=== PATIENT | male | born 1960 | race Caucasian/White ===

== ENCOUNTER → 2017-05-24 | Outpatient (CLI) | payer BC ==
--- NOTE | 2017-05-25 10:47 | XR ---
EXAM TYPE: LUMBAR SPINE X RAY SERIES COMPARISON: NONE HISTORY: Low back pain TECHNIQUE: 4 views are submitted. FINDINGS: Alignment is anatomic. The pedicles are intact. The transverse processes are intact. There is no s pondylolysis or spondylolisthesis. Severe degenerative disc disease L5-S1 and L4-L5 with severe arth ropathy of the facet joints. Moderate degenerative disc disease at remaining levels IMPRESSION: 1. Multilevel moderate to severe degenerative disc disease with most marked findings at L4-5. Bilater al foraminal encroachment suspected correlate with MRI..
== END | disposition home or self-care (01) ==
LOC: RADXRMAIN 16:40
PROVIDERS: ATTEND Physician Assistant
DX: M51.16 Intervertebral disc disorders with radiculopathy, lumbar region (principal)
CPT/HCPCS: 72100

== ENCOUNTER → 2017-05-29 | Outpatient (CLI) | payer BC ==
--- NOTE | 2017-05-29 15:17 | MR ---
EXAMINATION TYPE: MR lumbar spine wo con DATE OF EXAM: 05/29/2017 COMPARISON: NONE HISTORY: Rt buttock pain, radiating down leg; no trauma/pain TECHNIQUE: T1 and T2 axial and sagittal images of the lumbar spine are submitted. FINDINGS: There is no abnormal signal seen within the visualized spinal cord or paraspinal soft tissu es. At L1-2 there is no disc herniation or canal stenosis. No foraminal encroachment. At L2-3 there is no disc herniation or canal stenosis. No foraminal encroachment. Hypertrophic change of the facets noted. At L3-4 there is no disc herniation or canal stenosis. No foraminal encroachment. Hypertrophic change of the facets noted. Very minimal right paracentral disc bulging. At L4-5 there is severe degenerative disc disease with discogenic marrow changes. Circumferential dis c bulging with facet arthropathy and ligamentum flavum result in mild to moderate canal stenosis and moderate bilateral foraminal encroachment. At L5-S1 there is disc desiccation with central disc protrusion but no canal stenosis. Protrusion sli ghtly greater paracentrally the right with suggestion of encroachment upon the right nerve root. Face t arthropathy seen. Neural foramina remain patent. Vascular disc compatible severe degenerative disc disease. IMPRESSION: 1. Severe degenerative disc disease L4-5 with hypertrophic changes and disc bulging resulting in mild to moderate canal stenosis and bilateral moderate foraminal encroachment. 2. Central disc protrusion or small herniation L5-S1 slightly greater paracentrally to the right and may encroach upon the right nerve root. Correlate for right-sided radiculopathy at this level.
== END | disposition home or self-care (01) ==
LOC: RADMRIMAIN 13:51
PROVIDERS: ATTEND Family Medicine
DX: M48.061 Spinal stenosis, lumbar region without neurogenic claudication (principal); M51.27 Other intervertebral disc displacement, lumbosacral region; M51.36 Other intervertebral disc degeneration, lumbar region; M53.86 Other specified dorsopathies, lumbar region
CPT/HCPCS: 72148

== ENCOUNTER → 2017-06-22 | Outpatient (CLI) | payer BC ==
[2017-06-22 15:29] LABS: Basophils # (A) 0.1 k/uL (0-0.2); Basophils % (A) 1 %; Eosinophils # (A) 0.1 k/uL (0-0.7); Eosinophils % (A) 1 %; HCT 45.9 % (39.0-53.0); HGB 16.3 gm/dL (13.0-17.5); Lymphocytes # (A) 1.3 k/uL (1.0-4.8); Lymphocytes % (A) 14 %; MCH 31.6 pg (25.0-35.0); MCHC 35.6 g/dL (31.0-37.0); MCV 88.7 fL (80.0-100.0); Mean Platelet Volume 6.5; Monocytes # (A) 0.3 k/uL (0-1.0); Monocytes % (A) 3 %; Neutrophils # (A) 7.9 k/uL (1.3-7.7); Neutrophils % (A) 82 %; Platelet Count 327 k/uL (150-450); RBC 5.17 m/uL (4.30-5.90); RDW 12.3 % (11.5-15.5); WBC 9.6 k/uL (3.8-10.6)
[2017-06-22 20:35] LABS: Erythrocyte Sedimentation Rate 2 mm/hr (0-15)
== END | disposition home or self-care (01) ==
LOC: LABWHC1 14:57
PROVIDERS: ATTEND Orthopaedic Surgery Orthopaedic Surgery of the Spine
DX: M51.17 Intervertebral disc disorders with radiculopathy, lumbosacral region (principal); M47.817 Spondylosis without myelopathy or radiculopathy, lumbosacral region; M51.26 Other intervertebral disc displacement, lumbar region; M54.5 Low back pain
CPT/HCPCS: 36415; 85025; 85652; 86140

== ENCOUNTER → 2017-07-13 | Outpatient (CLI) | payer BC ==
[2017-07-13 16:50] LABS: Anion Gap 14 mmol/L; Blood Urea Nitrogen 18 mg/dL (9-20); Calcium 9.8 mg/dL (8.4-10.2); Carbon Dioxide 25 mmol/L (22-30); Chloride 104 mmol/L (98-107); Glucose 93 mg/dL (74-99); Potassium 4.6 mmol/L (3.5-5.1); Sodium 143 mmol/L (137-145)
[2017-07-13 16:51] LABS: Basophils # (A) 0.1 k/uL (0-0.2); Basophils % (A) 1 %; Eosinophils # (A) 0.2 k/uL (0-0.7); Eosinophils % (A) 3 %; HGB 14.9 gm/dL (13.0-17.5); Lymphocytes # (A) 2.8 k/uL (1.0-4.8); Lymphocytes % (A) 32 %; MCH 31.8 pg (25.0-35.0); MCHC 35.3 g/dL (31.0-37.0); MCV 89.9 fL (80.0-100.0); Mean Platelet Volume 6.6; Monocytes # (A) 0.5 k/uL (0-1.0); Monocytes % (A) 6 %; Neutrophils # (A) 4.8 k/uL (1.3-7.7); Neutrophils % (A) 56 %; Platelet Count 334 k/uL (150-450); RBC 4.68 m/uL (4.30-5.90); RDW 12.4 % (11.5-15.5); WBC 8.5 k/uL (3.8-10.6)
[2017-07-13 16:56] LABS: Appearance,Urine Clear (Clear); Bilirubin,Urine Negative (Negative); Blood,Urine Negative (Negative); Color,Urine Yellow; Glucose,Urine (UA) Negative (Negative); Ketones,Urine Negative (Negative); Leukocyte Esterase,Urine Negative (Negative); Nitrite,Urine Negative (Negative); Protein,Urine Negative (Negative); Urobilinogen,Urine <2.0 mg/dL (<2.0)
[2017-07-13 16:58] LABS: Partial Thromboplastin Time 22.4 sec (22.0-30.0); Prothrombin Time 9.9 sec (9.0-12.0)
--- NOTE | 2017-07-14 08:19 | XR ---
EXAMINATION TYPE: XR chest 2V DATE OF EXAM: 07/13/2017 COMPARISON: NONE TECHNIQUE: PA and lateral views submitted. HISTORY: Preop FINDINGS: The lungs are clear and there is no pneumothorax, pleural effusion, or focal pneumonia. Hypertrophi c change of the right AC joint noted. Failure. Hypertrophic changes of the spine IMPRESSION: 1. No acute process.
== END | disposition home or self-care (01) ==
LOC: LABPAT 15:45
PROVIDERS: ATTEND Orthopaedic Surgery Orthopaedic Surgery of the Spine
DX: Z01.818 Encounter for other preprocedural examination (principal); Z01.812 Encounter for preprocedural laboratory examination; M54.5 Low back pain
CPT/HCPCS: 36415; 71046; 80048; 81003; 85025; 85610; 85730; 87070

== ENCOUNTER 2017-07-21 07:53 | Inpatient (IN) | payer BC ==
[2017-07-14 14:54] VITALS: BMI 42.1
[~2017-07-21 07:53] MED LIST: BACITRACIN 50,000 UNIT, POLYMYXIN B 500,000 UNIT in SODIUM CHLORIDE 0.9% IRRIGATIO 1,00... IRRIGATION ONE; DEXAMETHASONE SOD PHOSPHATE 10 MG/ML 1 ML VIAL IV ONE; LIDOCAINE 1% 20 ML VIAL (10MG/ML) FOR IV START INTRADERMA PRN; MIDAZOLAM 2 MG/2 ML VIAL IV PRN; ONDANSETRON ODT 4 MG TAB PO ONE; SCOPOLAMINE 1.5MG/72HR PATCH TRANSDERM ONE
[2017-07-21] MEDS: LACTATED RINGERS 1,000 ML IV SCH ×2 (08:19→20:10)
[2017-07-21] MEDS ORDERED: ONDANSETRON 4 MG/2 ML VIAL IVP ONE (08:21)
[2017-07-21] MEDS ORDERED: BENZOCAINE/MENTHOL LOZENG 1 EACH LOZENGE MUCOUS MEM PRN (09:47)
[2017-07-21] MEDS ORDERED: MAGNESIUM HYDROXIDE 2,400 MG/10 ML CUP PO PRN (09:47)
[2017-07-21] MEDS ORDERED: MORPHINE SULFATE 4 MG/ML SYRINGE IVP PRN (09:47)
[2017-07-21] MEDS ORDERED: ONDANSETRON 4 MG/2 ML VIAL IVP PRN (09:48)
[2017-07-21] MEDS ORDERED: HYDROcodone/APAP 5-325MG 1 EACH TAB PO PRN (09:48)
--- NOTE | 2017-07-21 09:55 | P.OP ---
Date of Procedure: 07/21/17 Preoperative Diagnosis: Herniated nucleus pulposis C56 C6 7 Cervical stenosis C5 6 C6 7 Upper extremity radiculopathy Degenerative disc disease Postoperative Diagnosis: Same Anesthesia: GETA Pathology: none sent Condition: stable Disposition: PACU Description of Procedure: BRIEF OPERATIVE NOTE Preoperative Diagnosis: Herniated nucleus pulposis C5 6 C6 7, cervical stenosis C5 6 C6 7, degenerative disc disease, upper extremity radiculopathy Postoperative Diagnosis: Same Procedure: Anterior cervical decompression with discectomy and fusion C5 6 C6 7 Placement of interbody graft C5 6 C6 7 Application of anterior cervical plate C5 6 7 Surgeon: Dr. Baron Clam Sorter: Josué BIANCHI who is present throughout the entire the case persistence during positioning, dissection, exposure, visualization, and all crucial elements of the case as well as closure. Anesthesia: General anesthesia per Dr. Dr. Stanley Estimated blood loss: Approximately 30 mL Complications: None apparent Components implanted: K2M [place] anterior cervical plate system with screws and [place] interbody allograft bone graft with 1 mL of DBX bone putty to supplemental the bone graft Disposition: To recovery room in good stable condition. OPERATIVE INDICATIONS The patient has had long-standing issues in their neck and upper extremities. He was found have disc herniations at C5 6 and C6 7 as well as cervical stenosis with disc degeneration. These findings correlated well with his neck and upper extremity symptoms. The patient has been through conservative treatment. Despite conservative treatment he was not having any prolonged benefit and was having worsening of his symptoms particularly at his arm. We discussed various treatment options including surgery, and the patient wishes to proceed with surgery We discussed the risk, patient's alternatives and benefits of surgery including but not limited to, risk of bleeding risk of infection, risk of need for further surgery, risk of decreased, loss of motion, muscle function, malunion nonunion, hardware failure, nerve damage, paralysis, heart attack, and . OPERATIVE SUMMARY After discussing all the risks, patient alternatives and benefits at length, the patient elected to proceed with surgical intervention, signed informed consent, and presented for their procedure. The patient was seen and examined in the preoperative holding area and the surgical site was marked. The patient was given antibiotics and brought to the operating room. The patient was positioned on the operating room table in a supine position being careful to pad any bony prominences and pressure points. The patient was sedated and intubated by anesthesia in standard fashion. Once the airway and C- spine were stabilized the patient's arms were padded and tucked at her side, with her shoulders gently taped. The head was placed in a donut pad with the neck in good neutral alignment and position. We were careful to maintain the patient's cervical spine and good neutral alignment and position throughout. The patient was prepped and draped in a normal standard fashion. An appropriate timeout and keystone protocol performed. We were able to proceed with the surgery. The local wound area was infiltrated with local anesthetic. An incision was made transversely approximately 2-1/2 cm over the appropriate levels at C6. Dissection was taken down subcutaneously to the level of the platysma which was split in line with its fibers. Dissection was taken with a carotid approach, with the trachea and esophagus medial and the carotid sheath laterally. We dissected down to the anterior surface of the vertebral bodies of C5 6 and 7. Intraoperative x-ray was taken which showed a marker at the appropriate level of C6 7. With the appropriate level positively confirmed, we were able to proceed with discectomy at the appropriate levels, starting at C5 6 and then moving to C6 7. All of the operative levels were exposed appropriately. I was able to remove the anterior osteophytes with a rongeur. The patient had all their twitches back, and there was no evidence of recurrent laryngeal issue. The wound was copiously irrigated and suctioned dry as had been done periodically throughout the case. At the appropriate level/levels, starting at C5 6 and then moving to C6 7, I established an annulotomy with an 11 blade scalpel. A discectomy was performed with a combination of pituitary rongeurs, curettes, a high-speed bur, and Kerrison rongeurs. The posterior longitudinal ligament was taken down as were any posterior osteophytes. As able to remove any extruded disc herniation as there was evidence of cervical stenosis due to disc herniation. This gave good central and bilateral foraminal decompression. There is no evidence of any dural tear or leak. The endplates were prepared with a high-speed bur. With the endplates in good parallel position, I was able to size for the appropriate size interbody graft. The wound was irrigated and suctioned dry the graft was prepared and malleted into position. It had good alignment and position with the anterior surface flush with the anterior surface of the vertebral bodies. This was done similarly the appropriate levels first at C5 6 and then at C6 7. With the grafts intact, I was able to measure and contour and appropriate sized plate. The plate was positioned at the midline over the appropriate levels. Screw holes were established with a hand drill and drill guide. Screws were placed in good alignment and position with excellent bony purchase. They were seated under the locking device. The construct was checked and found to be stable. Intraoperative x-ray was taken which showed good alignment and position of the implants at the appropriate levels. There was no evidence of any dural tear or leak. Good hemostasis was maintained. The wound was copiously irrigated and suctioned dry as had been done periodically throughout the case. The platysma was closed with absorbable suture. The subcutaneous tissue was closed. The subcuticular tissue was closed with absorbable suture. The wound was cleaned and dried and dressed appropriately. A soft cervical collar was placed appropriately. The patient was woken up by anesthesia, extubated, transferred back gently to their hospital bed and brought to the recovery room in good stable condition. The patient will be admitted to the hospital for appropriate postoperative care , medical management and monitoring. We will continue to follow them closely about the postoperative course.
[2017-07-21] MEDS: fentaNYL (PF) 50 MCG/ML 2 ML AMP IV PRN ×5 (10:13→14:44)
[2017-07-21] MEDS ORDERED: PROPOFOL 10 MG/ML 20 ML VIAL IV ONE (10:34)
[2017-07-21] MEDS ORDERED: ROCURONIUM BROMIDE 10 MG/ML 10 ML VIAL IV ONE (10:34)
[2017-07-21] MEDS ORDERED: MIDAZOLAM 2 MG/2 ML VIAL ONE (10:34)
[2017-07-21] MEDS ORDERED: PHENYLEPHRINE-0.9% NACL SYG 1 MG/10 ML SYRINGE ONE (10:34)
[2017-07-21] MEDS ORDERED: LIDOCAINE 1% INJ 10MG/ML (20 ML MDV) ONE (10:34)
[2017-07-21] MEDS ORDERED: SUCCINYLCHOLINE CHLORIDE VIAL 200 MG/10 ML VIAL IV ONE (10:34)
[2017-07-21] MEDS ORDERED: fentaNYL (PF) 50 MCG/ML 2 ML AMP ONE (10:34)
[2017-07-21] MEDS ORDERED: ePHEDrine SULFATE/0.9% NACL/PF 50 MG/5 ML SYRINGE IV ONE (10:34)
[2017-07-21] MEDS ORDERED: GELATIN SPONGE,ABSORB (LARGE) 1 EACH SPONGE TOPICAL ONE (10:45)
[2017-07-21] MEDS ORDERED: LIDOCAINE 0.5%-EPI 1:200,000 50 ML VIAL SQ ONE (10:45)
[2017-07-21] MEDS ORDERED: THROMBIN (BOVINE) 5,000 UNIT VIAL TOPICAL ONE (10:45)
[2017-07-21] MEDS ORDERED: LACTATED RINGERS 1,000 ML IV ONE ×2 (11:21→12:55)
--- NOTE | 2017-07-21 13:18 | XR ---
EXAM TYPE: LUMBAR SPINE X RAY SERIES COMPARISON: NONE HISTORY: Surgical procedure TECHNIQUE: 4 views are submitted. FINDINGS: Surgical changes are noted. Resolution limited by technique. IMPRESSION: 1. Intraoperative image.
--- NOTE | 2017-07-21 13:45 | P.OP ---
Date of Procedure: 07/21/17 Preoperative Diagnosis: Spinal stenosis L4 5 Degenerative disc disease Low back pain with lower extremity radiculopathy Postoperative Diagnosis: Same Anesthesia: GETA Pathology: none sent Condition: stable Disposition: PACU Description of Procedure: DESCRIPTION OF PROCEDURE(S): BRIEF OPERATIVE NOTE Preoperative Diagnosis: Spinal stenosis L4 5, severe disc degeneration L4 5, low back pain and lower extremity radiculopathy Postoperative Diagnosis: Same Procedure: Laminectomy and decompression with foraminotomy and facetectomy on the right at L4 5 Minimally invasive Posterior lateral decompression and fusion L4-5 Minimally invasive Transforaminal lumbar interbody fusion for a 360 fusion L4 5 Discectomy for decompression L4 5 Placement of interbody graft L45 Hervesting of bone marrow aspirate from L4 pedicle Local autogenous bone grafting Use of Cell Saver Use of bone graft extenders Surgeon: Dr. Baron Foreign Service Teacher: Josué BIANCHI who is present throughout the entire the case persistence during positioning, dissection, exposure, visualization, and all crucial elements of the case as well as closure. Anesthesia: General anesthesia per Dr. Dr. Stanley Estimated blood loss: Approximately 50 mL Complications: None apparent Components implanted: K2M [place] minimally invasive pedicle screw system with 4 screws measuring 50 mm x 6.5 with 2 rods and 1 [place] cage with 1 osteaoamp sponge and 30 mL of DBX bone fibers to supplement the local autogenous bone graft and bone marrow aspirate Disposition: To recovery room in good stable condition. OPERATIVE INDICATIONS The patient has had long-standing issues in their lower back and lower extremities. His found have severe change at L4 5 with complete disc height loss and sclerotic margins at the L4 5 disc space. He also had significant stenosis and facet arthrosis at this level which correlated well with his low back and lower extremity symptoms. He is having severe debility with this and worsening symptoms. The patient has been through conservative treatment. He is not having any benefit despite aggressive conservative care. We discussed various treatment options including surgery, and the patient wishes to proceed with surgery We discussed the risk, patient's alternatives and benefits of surgery including but not limited to, risk of bleeding risk of infection, risk of need for further surgery, risk of decreased, loss of motion, muscle function , malunion nonunion, hardware failure, nerve damage, paralysis, heart attack, blindness and . OPERATIVE SUMMARY After discussing all the risks, patient alternatives and benefits at length, the patient elected to proceed with surgical intervention, signed informed consent, and presented for their procedure. The patient was seen and examined in the preoperative holding area and the surgical site was marked. The patient was given antibiotics and brought to the operating room. The patient was sedated and intubated by anesthesia in standard fashion. The patient was positioned on to the operating room table in a prone position on the appropriate frame which was well-padded and well molded. We were careful to pad any bony prominences and pressure points. We were careful to maintain the patient's cervical spine and good neutral alignment and position throughout. The patient was prepped and draped in a normal standard fashion. An appropriate timeout and keystone protocol performed. We were able to proceed with the surgery. The local wound area was infiltrated with local anesthetic. I was able utilize C-arm guidance to establish appropriate position over the pedicles bilaterally at the appropriate levels at L4 5. With the appropriate levels confirmed was able to make small stab incisions over the appropriate pedicle sites bilaterally. Utilizing C-arm in his house able to establish a Jamshidi needle over the lateral aspect of the pedicle and advanced the trocar into the pedicle being careful not to breech superiorly inferiorly medially or laterally. Position was confirmed regularly with AP and lateral images on C- arm. I was able to establish the trocar into the pedicle appropriately into the posterior aspect of the vertebral body bilaterally at the appropriate levels. This was done at each of the pedicle positions and each of the vertebrae. At the L4 vertebrae on the right I harvested approximately 18 mL of bone marrow aspirate to be used later in the case to supplement the bone graft. I was able place the guidewire into the trocar and into the vertebral body appropriately under C-arm guidance. Dissection was taken down over the wire to the appropriate starting position for the screw placed. The appropriate length screw was chosen, threaded over the guidewire and screwed appropriately into the pedicle and vertebral body under C-arm guidance in excellent alignment and position with good bony purchase. This is done at each of the screw sites at the appropriate levels. With the screws intact I extended the incision to connect the screw hole sites on the most symptomatic side on the right at L4 5. I dissected down to establish access over the pars and lamina to the base of the spinous process. I was able to expose the facet joint. The capsule the facet was taken down and showed some facet arthrosis at the joint. I was able to use a combination of curettes and Kerrison rongeurs and a high-speed drill to take down the facet joint and do a facetectomy. Partial laminectomy was also performed. I was able get excellent foraminal decompression and central decompression with undermining across midline to perform a laminectomy centrally and contralaterally. As able get good central decompression. The ligamentum flavum was taken down to further decompress centrally and at bilateral neural foramen. I was able to expose the disc space and visualize the traversing nerve root. Note was made of some disc protrusion at the level causing further compression of the nerve root. I was able to establish a annulotomy at the appropriate level protecting soft tissue and neural structures. Note was made of some severe disc desiccation at the disc and severe disc loss. I performed a complete discectomy with accommodation of curettes and rasps and scrapers. I was able get good endplate preparation at the disc space. I sized for the appropriate size interbody spacer protecting the soft tissue and neural structures. The wound was copiously irrigated and suctioned dry. There is no evidence of any dural tear or leak. I was able to pack the disc space with local autogenous bone graft as well as a small amount of bone graft which was also placed into the interbody cage itself. Protecting the soft tissue structures and neural structures I was able place the interbody cage in good alignment and good position with good fit and fill at the interbody space. His issues was confirmed with C-arm guidance. Good hemostasis maintained. There is no evidence of any dural tear or leak. The wound was irrigated and suctioned dry. With the hardware intact, intraoperative C-arm imaging was again taken which showed good alignment and position of the hardware at the appropriate levels of L4 5. We were then able to measure, contour and place the rods and appropriate hardware bilaterally. I was able to place capcrews, tighten them down, and torque them with the torque screwdriver appropriately. With this intact I was able to place the local autogenous bone graft with additional bone graft enhancer as necessary into the posterior lateral gutters over the decorticated transverse processes. The remainder of the bone graft was placed over the facet joint on the contralateral side after taking down the facet joint capsule. With the bone graft intact, a stable construct, and good decompression at the appropriate levels, we were able to proceed with closure. Good hemostasis was maintained. There is no evidence of dural tear or leak. The fascia was closed for a watertight closure. he subcuticular tissue was closed with absorbable suture. The wound was cleaned and dried and dressed with the appropriate dressing. The drapes were broken down. The patient was gently rolled back onto their hospital bed being careful to maintain their cervical spine and good neutral alignment and position. They were woken up by anesthesia, extubated, and brought to the recovery room in good stable condition. The patient will be admitted to the hospital for appropriate postoperative care , medical management and monitoring. We will continue to follow them closely about the postoperative course.
--- NOTE | 2017-07-21 14:00 | FL ---
EXAMINATION TYPE: FL guidance operating room DATE OF EXAM: 07/21/2017 HISTORY: Flouroscopy time 67 seconds of fluoroscopy provided. IMPRESSION: 1. Fluoroscopy time.
[2017-07-21] MEDS ORDERED: MORPHINE SULFATE 4 MG/ML SYRINGE IVP ONE (14:15)
[2017-07-21] MEDS: SODIUM CHLORIDE 0.9% 1,000 ML IV SCH ×2 (15:10→20:11)
[2017-07-21] MEDS ORDERED: ceFAZolin IN SWFI 2 GM/20 ML SYRINGE IVP SCH (16:00)
[2017-07-21] MEDS: PANTOPRAZOLE 40 MG TABLET PO SCH (17:09)
[2017-07-21] MEDS: SERTRALINE 50 MG TAB PO SCH (17:09)
[2017-07-21] MEDS: HYDROcodone/APAP 10-325MG 1 EACH TAB PO SCH ×2 (17:11→23:15)
[2017-07-21] MEDS: DIAZEPAM 5 MG TAB PO PRN (18:24)
--- NOTE | 2017-07-21 18:37 | CONS ---
CONSULTATION REASON FOR CONSULTATION: Advice regarding GERD and other multiple medical issues requested by Dr. Baron. HISTORY OF PRESENT ILLNESS: This 56 -year-old gentleman with a past history of GERD, hyperlipidemia, sleep apnea, CPAP, being followed by a Dr. Rodney Duarte in the outpatient setting underwent anterior cervical decompression, diskectomy and fusion C5-[address] Baron[address] There is no history of fever, rigors or chills. No history of headache, loss of consciousness, seizures. PAST MEDICAL HISTORY: 1. History of GERD. 2. Hyperlipidemia. 3. Sleep apnea on CPAP. MEDICATIONS: Home medications are the list includes: 1. Testosterone 50 mg t.i.d. daily. 2. Zoloft 50 mg at supper. 3. Centrum 1 p.o. daily. 4. Nasonex 1 spray daily. 5. Yale 10 mg q.p.m. 6. Nexium 40 mg daily. 7. Zyrtec 10 mg daily. 8. Lipitor 20 mg q.h.s. ALLERGIES: None. FAMILY HISTORY: History of ovarian cancer in the family. SOCIAL HISTORY: No history of smoking. Occasional alcohol intake. REVIEW OF SYSTEMS: ENT: No diminished vision. No diminished hearing. CARDIOVASCULAR: No angina or palpitations. Respiratory: No cough or hemoptysis. GI no nausea or vomiting. no dysuria. Nervous system: No numbness, weakness. Allergy/Immunology: No asthma or hayfever. Musculoskeletal: As mentioned earlier. Hematology/Oncology: No history of anemia. Endocrine: No history of diabetes or hypothyroidism. Constitutional: As mentioned earlier. Dermatology: Negative. Rheumatology: Negative. Psychiatric: As mentioned earlier. PHYSICAL EXAMINATION: The patient is alert and oriented times three . Pulse 95, blood pressure 130/60, respirations 16, temperature is normal. Pulse ox normal 94% on room air. HEENT: Conjunctivae normal. Oral mucosa moist. Neck is no jugular venous distention. No carotid bruit. No lymph node enlargement. Cardiovascular System: S1, S2. Respiration: Breath sounds diminished in the bases. No rhonchi and no crackles. ABDOMEN: Soft, nontender. Legs are no edema, no swelling. Central nervous system: No focal deficits. LABS: Done during the previous admission. CBC within normal limits. INR is normal and platelets 133. ASSESSMENT: 1. Status post anterior cervical decompression with diskectomy, fusion, C5-6, C6-7, placement of interbody graft. 2. Hypertriglyceridemia. 3. Gastroesophageal reflux disease. 4. Hyperlipidemia. 5. Sleep apnea. 6. History of vasectomy and colonoscopy. RECOMMENDATIONS AND DISCUSSION: In this 56-year-old gentleman who presented after surgery, at this time, I recommend to continue the rest of the home medications. DVT prophylaxis. Incentive spirometry. Follow the patient closely with you. Basic labs appear to be normal. Thank you Dr. Baron for letting us participate in this patient. The patient may be asked to follow with Dr. Duarte closely after discharge. MMODL / IJN: [id number] /
[2017-07-21] MEDS: MORPHINE SULFATE 4 MG/ML SYRINGE IVP PRN (20:09)
[2017-07-21] MEDS: ATORVASTATIN 20 MG TAB PO SCH (20:12)
[2017-07-22] MEDS: MORPHINE SULFATE 4 MG/ML SYRINGE IVP PRN ×6 (02:45→21:00)
[2017-07-22] MEDS: DIAZEPAM 5 MG TAB PO PRN ×3 (02:53→16:42)
[2017-07-22 07:45] LABS: Basophils % (A) 0 %; Eosinophils # (A) 0.1 k/uL (0-0.7); Eosinophils % (A) 1 %; HCT 37.6 % (39.0-53.0); HGB 13.2 gm/dL (13.0-17.5); Lymphocytes # (A) 1.5 k/uL (1.0-4.8); Lymphocytes % (A) 12 %; MCH 31.3 pg (25.0-35.0); MCHC 35.1 g/dL (31.0-37.0); MCV 89.3 fL (80.0-100.0); Mean Platelet Volume 6.4; Monocytes # (A) 0.9 k/uL (0-1.0); Monocytes % (A) 7 %; Neutrophils # (A) 9.7 k/uL (1.3-7.7); Neutrophils % (A) 79 %; Platelet Count 284 k/uL (150-450); RBC 4.21 m/uL (4.30-5.90); RDW 12.7 % (11.5-15.5); WBC 12.3 k/uL (3.8-10.6)
[2017-07-22 07:46] LABS: Anion Gap 14 mmol/L; Blood Urea Nitrogen 14 mg/dL (9-20); Carbon Dioxide 23 mmol/L (22-30); Chloride 103 mmol/L (98-107); Glucose 115 mg/dL (74-99); Potassium 4.1 mmol/L (3.5-5.1); Sodium 140 mmol/L (137-145)
[2017-07-22] MEDS: HYDROcodone/APAP 10-325MG 1 EACH TAB PO SCH ×2 (08:27→16:42)
[2017-07-22] MEDS: TESTOSTERONE 50 MG TD SCH (08:31)
[2017-07-22] MEDS: LORATADINE 10 MG TAB PO SCH (08:35)
[2017-07-22] MEDS: SENNOSIDES-DOCUSATE SODIUM 1 EACH TAB PO SCH (08:35)
[2017-07-22] MEDS ORDERED: SENNOSIDES-DOCUSATE SODIUM 1 EACH TAB PO SCH (09:00)
[2017-07-22] MEDS: FLUTICASONE 50MCG/SPRAY NASAL 16GM EA NOSTRIL SCH (09:30)
--- NOTE | 2017-07-22 10:01 | P.PN ---
Progress Note - Text Progress Note Date: 07/22/17 Postoperative day #1 Patient is seen and examined today at bedside. The patient has some pain around the surgical site as expected. He has been up out of bed to the bathroom and has been able to urinate on his own. He did not get very much restless night due to the overall environment and his pain. Pain is being controlled with medication. He says his legs are feeling good Physical Exam Afebrile with stable vital signs Abdomen is soft nontender. Chest has good excursion deep and space expiration The incision site is clean dry and intact. No erythema there is no purulence. The dressing is intact clean Extremities have not had neurologic change from prior to surgery. He has sustained dorsal to plantar flexion and EHL intact Calves and thighs were soft nontender without evidence of DVT. Assessment/Plan Postoperative day #1 status post decompression fusion L4 5 for his spinal stenosis with degenerative disc disease low back and lower extremity radiculopathy Patient is progressing as expected from the surgery. We will continue to increase the patient's mobilization with therapy. I think he will continue to improve as expected. He is tolerating his diet well and tolerating pain adequately. He is already voiding. We will continue pain control with oral or IV medications. We'll continue to follow patient closely. Hopefully he'll be couple for discharge home in the next 1-2 days
[2017-07-22 14:57] VITALS: RESP 16
[2017-07-22] MEDS: PANTOPRAZOLE 40 MG TABLET PO SCH (15:21)
[2017-07-22] MEDS: MULTIVITAMINS, THERA 1 EACH TAB PO SCH (15:21)
[2017-07-22] MEDS: SODIUM CHLORIDE 0.9% 1,000 ML IV SCH (15:45)
[2017-07-22] MEDS: SERTRALINE 50 MG TAB PO SCH (16:42)
[2017-07-22] MEDS: LACTATED RINGERS 1,000 ML IV SCH (19:35)
[2017-07-22] MEDS: ATORVASTATIN 20 MG TAB PO SCH (20:01)
[2017-07-22] MEDS: MELATONIN 3 MG TABLET PO SCH (20:59)
--- NOTE | 2017-07-22 22:08 | PN ---
PROGRESS NOTE DATE OF SERVICE: 07/22/2017 This 56-year-old gentleman with a past medical history of multiple medical problems was admitted for lumbar surgery. The patient underwent lumbar laminectomy and decompression with foraminotomy for L4-5. No chest pain. No palpitations. No fever. On exam, alert and oriented x3. Pulse is 92, blood pressure 158/89, respiration 16, temperature 98.4, pulse ox 97% on room air. HEENT: Conjunctivae normal. NECK: No jugular venous distention. CARDIOVASCULAR SYSTEM: S1, S2 muffled. RESPIRATORY SYSTEM: Breath sounds diminished at the bases. A few scattered rhonchi. ABDOMEN: Soft, non-tender. LEGS: No edema. No swelling. NERVOUS SYSTEM: No focal deficit. EXAMINATION OF THE BACK: Status post surgery. LABS: WBC 12.3. ASSESSMENT: 1. Status post lumbar laminectomy and decompression of L4-5. 2. Hypertriglyceridemia. 3. Gastroesophageal reflux disease. 4. Hyperlipidemia. 5. Sleep apnea. 6. History of vasectomy. 7. History of colonoscopy. RECOMMENDATIONS AND DISCUSSION: I recommend to continue current medication, continue symptomatic treatment. Otherwise at this time I would recommend pain medication. Closely follow with Dr. Baron. DVT prophylaxis. Further recommendations to follow. MMODL / IJN: [id number] /
--- NOTE | 2017-07-22 22:14 | CONS ---
CONSULTATION ADDENDUM TO CONSULTATION: Please change assessment #1 to the following: Status post lumbar laminectomy and decompression of L4-5. MMODL / IJN: [id number] /
[2017-07-23] MEDS: HYDROcodone/APAP 10-325MG 1 EACH TAB PO SCH ×4 (00:15→22:58)
[2017-07-23] MEDS: DIAZEPAM 5 MG TAB PO PRN ×4 (00:15→22:58)
[2017-07-23] MEDS: SODIUM CHLORIDE 0.9% 1,000 ML IV SCH ×2 (03:26→17:47)
[2017-07-23] MEDS: LORATADINE 10 MG TAB PO SCH (08:27)
[2017-07-23] MEDS: FLUTICASONE 50MCG/SPRAY NASAL 16GM EA NOSTRIL SCH (08:31)
[2017-07-23] MEDS: TESTOSTERONE 50 MG TD SCH (08:31)
[2017-07-23] MEDS: SENNOSIDES-DOCUSATE SODIUM 1 EACH TAB PO SCH (08:31)
--- NOTE | 2017-07-23 08:31 | P.PN ---
Progress Note - Text Progress Note Date: 07/23/17 Orthopedic Spine Patient is a pleasant 56-year-old male who is seen and examined at the bedside following posterior lateral decompression and fusion performed Wednesday. Patient states they are doing ok postsurgically. Continues to have significant pain and spasm at the surgical sites at his lumbar spine. He states his pain is better controlled while lying in bed. He has difficulty with ambulating to the restroom but has been able to do so. He is voiding without difficulty. He has not had a bowel movement but is passing gas. He is hoping to have a bowel movement today. He has been eating. He continues to receive IV morphine, Zillah , and I am control the symptoms. Postoperatively, his right lower extremity radiculopathy has had improvement but feels slightly worse this morning as compared to yesterday. Currently does not complain of nausea, vomiting, fever, or chills. Physical Exam Lumbar Fusion: Status post surgical day number 2 Patient is awake, alert, and oriented 3 Vital signs stable Good chest excursion with deep inspiration and expiration Abdomen soft nontender Dorsiflexion, plantarflexion, and extensor hallucis longus positive sustained bilaterally No signs or symptoms of DVT; no calf pain; pneumatic cuffs currently intact bilateral lower extremities Dressing is intact some dried blood over the dressing; no erythema, purulence, or signs of infection Neurovascularly intact bilaterally lower extremities Assessment: L4-5 minimally invasive posterior lateral decompression and fusion with transforaminal lumbar interbody fusion Low back pain Lumbar spasm Right lower extremity radiculopathy Plan: 1. Ambulate as tolerated; work with Physical Therapy to increase mobilization 2. Continue pain control with IV and oral medications; we will try to wean off IV pain medication in anticipation for possible discharge home this weekend 3. Dressing to remain intact with stick Telfa and Tegaderm; dressing will be removed and changed today with nonstick Telfa and Tegaderm 4. Medical management can continue to manage patient for patient's other medical issues 5. We will continue to follow the patient closely; the patient is able to improve, we may plan for discharge home as early as tomorrow, 07/24/2017 or 07/25/2017. 6. Patient can follow-up with Josué Romero PA-C or Dr. Kody Baron at [facility] in 2-3 weeks following discharge
[2017-07-23] MEDS: MORPHINE SULFATE 4 MG/ML SYRINGE IVP PRN ×3 (11:35→18:40)
[2017-07-23] MEDS: MULTIVITAMINS, THERA 1 EACH TAB PO SCH (13:47)
[2017-07-23] MEDS: SERTRALINE 50 MG TAB PO SCH (17:05)
[2017-07-23] MEDS: PANTOPRAZOLE 40 MG TABLET PO SCH (17:05)
[2017-07-23] MEDS: LACTATED RINGERS 1,000 ML IV SCH (22:11)
[2017-07-23] MEDS: ATORVASTATIN 20 MG TAB PO SCH (22:58)
[2017-07-23] MEDS: MELATONIN 3 MG TABLET PO SCH (22:58)
--- NOTE | 2017-07-24 00:02 | PN ---
PROGRESS NOTE DATE OF SERVICE: 07/23/2016 This 56-year-old gentleman admitted after back surgery is improving significantly. Complains of back pain. No chest pain. No palpitations. No fever. EXAM: Alert and oriented x3. Pulse 108, blood pressure 154/85, respirations 16, temperature 98.2, pulse ox 94% on room air. HEENT: Conjunctivae normal. NECK: No jugular venous distention. CARDIOVASCULAR: S1, S2 muffled. RESPIRATORY: Breath sounds diminished in the bases. No rhonchi. No crackles. ABDOMEN: Soft, nontender. LEGS: No edema. No swelling. NERVOUS SYSTEM: Nonfocal. LABS: WBC 12.2, hemoglobin 13.2. ASSESSMENT: 1. Status post lumbar laminectomy, decompression L4-5. 2. Hypertension. 3. Hypertriglyceridemia. 4. Gastroesophageal reflux disease. 5. Hyperlipidemia. 6. Sleep apnea. 7. History of vasectomy. 8. History of colonoscopy. RECOMMENDATIONS AND DISCUSSION: In this 56-year-old gentleman who presented with multiple complex medical issues, at this time I would recommend to continue current medical management and symptomatic treatment. I would recommend initiating Norvasc to the current regimen for the persistent hypertension. I would also recommend continued followup in the outpatient setting. Otherwise, we will follow the patient closely. Further recommendations to follow. MMODL / REESEN: [id number] /
[2017-07-24 08:26] VITALS: BP 148/87; PULSE 95; TEMP 99
[2017-07-24] MEDS: HYDROcodone/APAP 10-325MG 1 EACH TAB PO SCH (08:27)
[2017-07-24] MEDS: LORATADINE 10 MG TAB PO SCH (08:28)
[2017-07-24] MEDS: FLUTICASONE 50MCG/SPRAY NASAL 16GM EA NOSTRIL SCH (08:29)
[2017-07-24] MEDS: SENNOSIDES-DOCUSATE SODIUM 1 EACH TAB PO SCH (08:31)
[2017-07-24] MEDS: TESTOSTERONE 50 MG TD SCH (08:36)
[2017-07-24] MEDS ORDERED: amLODIPine 5 MG TAB PO SCH (09:00)
--- NOTE | 2017-07-24 09:22 | P.DS ---
Providers Date of admission: 07/21/17 07:53 Expected date of discharge: 07/24/17 Attending physician: Milady Baron Consults: 07/21/17 13:34 Consult Physician Routine Consulting Provider: Rodney Duarte Consult Reason/Comments: Medical management Do you want consulting provider notified?: Yes Primary care physician: Rodney Duarte - Discharge Diagnosis(es) (1) Status post lumbar spinal fusion Current Visit: Yes Status: Acute (2) Low back pain Current Visit: Yes Status: Acute Hospital Course: This is a 56-year-old male with history of degenerative disc disease and spinal stenosis at L4 5. He is admitted on 07/31/2017 for minimally invasive posterior lumbar decompression and fusion with transforaminal interbody fusion L4-5. He is doing well on postoperative day #3. He has no neurologic complaints at this time. He is up ambulating with minimal assistance. He is afebrile. The patient is ready for discharge on postoperative day #3. Patient Condition at Discharge: Good Plan - Discharge Summary Discharge Rx Participant: Yes New Discharge Prescriptions: New Cyclobenzaprine [Flexeril] 10 mg PO TID PRN #30 tab PRN Reason: pain/spasm Changed HYDROcodone/APAP 10-325MG [[place] 10-325] 1 - 2 tab PO Q6H #90 tab No Action Mometasone Furoate [Nasonex Nasal [place]] 1 spray EA NOSTRIL DAILY Esomeprazole Magnesium [NexIUM] 40 mg PO DAILY@1500 Cetirizine HCl [Zyrtec] 10 mg PO DAILY Atorvastatin [Lipitor] 20 mg PO HS Multivit-Min/FA/Lycopen/Lutein [Centrum Silver Tablet] 1 tab PO DAILY Sertraline HCl [Zoloft] 50 mg PO W/SUPPER Testosterone [Androgel] 50 mg TD DAILY Discharge Medication List Atorvastatin [Lipitor] 20 mg PO HS 05/21/15 [History] Cetirizine HCl [Zyrtec] 10 mg PO DAILY 05/21/15 [History] Esomeprazole Magnesium [NexIUM] 40 mg PO DAILY@1500 05/21/15 [History] Mometasone Furoate [Nasonex Nasal [place]] 1 spray EA NOSTRIL DAILY 05/21/15 [ History] Multivit-Min/FA/Lycopen/Lutein [Centrum Silver Tablet] 1 tab PO DAILY 05/21/15 [ History] Sertraline HCl [Zoloft] 50 mg PO W/SUPPER 05/21/15 [History] Testosterone [Androgel] 50 mg TD DAILY 05/21/15 [History] Cyclobenzaprine [Flexeril] 10 mg PO TID PRN #30 tab 07/24/17 [Rx] HYDROcodone/APAP 10-325MG [[place] 10-325] 1 - 2 tab PO Q6H #90 tab 07/24/17 [Rx] Follow up Appointment(s)/Referral(s): Josué Romero, WAQAR [PHYSICIAN INFORMATION CLERK CASHIER] - 2 Weeks (Patient may follow-up with Josué Romero PA-C or Dr. Kody Baron at [facility] in 2-3 weeks following discharge. ) Activity/Diet/Wound Care/Special Instructions: 1. Patient may shower with Tegaderm dressing intact. 2. Patient may remove Tegaderm dressing in 3 days and shower without a dressing at that time. 3. Patient should keep Steri-Strips intact and allow them to fall off naturally. 4. Patient should refrain from driving until at least after their first follow- up appointment in the office. 5. Patient should avoid excessive bending, twisting, and lifting; no lifting greater than 10 pounds 6. Take medications as prescribed 7. Do not soak in tub Discharge Disposition: HOME SELF-CARE
[2017-07-24] MEDS: MULTIVITAMINS, THERA 1 EACH TAB PO SCH (13:02)
--- NOTE | 2017-07-24 16:10 | PN ---
PROGRESS NOTE DATE OF SERVICE: 07/24/2017 This 56-year-old gentleman admitted after lumbar laminectomy also had mild hypertension. Hypertension seems to be labile. No chest pain. No palpitations. No fever. On exam, alert and oriented x3. Pulse is 95, blood pressure 148/87, respiration 16, temperature 99 degrees, pulse ox 98% on room air. HEENT: Conjunctivae normal. NECK: No jugular venous distention. CARDIOVASCULAR SYSTEM: S1, S2 muffled. RESPIRATORY SYSTEM: Breath sounds diminished at the bases. No rhonchi. No crackles. ABDOMEN: Soft, non-tender. No mass palpable. LEGS: No edema. No swelling. EXAMINATION OF THE BACK: Status post surgery. LABS: WBC 12.3, hemoglobin 13.2. ASSESSMENT: 1. Status post lumbar laminectomy, decompression, L4-5. 2. Hypertension, labile. 3. Hypertriglyceridemia. 4. History of gastroesophageal reflux disease. 5. Hyperlipidemia. 6. Sleep apnea. 7. Vasectomy. 8. History of colonoscopy. RECOMMENDATIONS AND DISCUSSION: I recommend to continue current medication, continue symptomatic treatment. I would recommend the patient on discharge closely follow with primary physician. Monitor blood pressure at home. Otherwise, the rest of the medications per Orthopedic Surgery. Further recommendations to follow. Treatment deferred at this time. Awaiting final disposition. MMODL / IJN: [id number] /
--- NOTE | 2017-07-26 11:02 | CDI ---
Documentation Clarification Form Date: 07/26/17 From: Aide Dejesus Admit Date: 07/21/2017 7:53:00 AM Patient Name: Roly Beasley Visit Number: [id number] Discharge Date: 07/24/17 ATTENTION: The Clinical Documentation Specialists (CDI) and [facility] Coding Staff appreciate your assistance in clarifying documentation. Please respond to the clarification below the line at the bottom and electronically sign. The CDI & [facility] Coding staff will review the response and follow-up if needed. Please note: Queries are made part of the Legal Health Record. If you have any questions, please contact the author of this message via ITS. Dr. Milady Baron Patients weight is 141.06kg Patients height is 6ft Calculated BMI is 42.2 In order to capture the severity of condition associated with patient BMI of 42.2, a clinical diagnoses needs to be documented by the physician. Please clarify: Obese Morbidly obese Other, please specify ____ Unable to determine _Other diagnosis for patient includes morbid obesity with a BMI of 42.2. This significantly affected his treatment in terms of difficulty of care and surgical treatment as well as monitoring postoperatively. MTDD
== END 2017-07-24 13:10 | disposition home or self-care (01) | DRG 454 ==
LOC: 2ORMAIN 07:53 → 3SUR 13:39
PROVIDERS: ADMIT Orthopaedic Surgery Orthopaedic Surgery of the Spine; ATTEND Orthopaedic Surgery Orthopaedic Surgery of the Spine
PROC: 0SG00AJ Fusion of Lumbar Vertebral Joint with Interbody Fusion Device, Posterior Approach, Anterior Column, Open Approach (ICD-10-PCS; 2017-07-21)
PROC: 0SG0071 Fusion of Lumbar Vertebral Joint with Autologous Tissue Substitute, Posterior Approach, Posterior Column, Open Approach (ICD-10-PCS; 2017-07-21)
PROC: 07DS3ZX Extraction of Vertebral Bone Marrow, Percutaneous Approach, Diagnostic (ICD-10-PCS; 2017-07-21)
PROC: 0ST20ZZ Resection of Lumbar Vertebral Disc, Open Approach (ICD-10-PCS; 2017-07-21)
PROC: 30233N0 Transfusion of Autologous Red Blood Cells into Peripheral Vein, Percutaneous Approach (ICD-10-PCS; principal; 2017-07-21 09:45)
DX: M48.061 Spinal stenosis, lumbar region without neurogenic claudication (principal); Z68.41 Body mass index [BMI] 40.0-44.9, adult; E78.1 Pure hyperglyceridemia; M51.17 Intervertebral disc disorders with radiculopathy, lumbosacral region; K21.9 Gastro-esophageal reflux disease without esophagitis; E66.01 Morbid (severe) obesity due to excess calories; G47.30 Sleep apnea, unspecified; I10 Essential (primary) hypertension; Z79.899 Other long term (current) drug therapy; Z79.891 Long term (current) use of opiate analgesic; Z79.890 Hormone replacement therapy; Z80.41 Family history of malignant neoplasm of ovary; Z98.52 Vasectomy status; Z79.51 Long term (current) use of inhaled steroids
CPT/HCPCS: 72020; 80048; 85025; 86850; 86900; 86901

== ENCOUNTER 2023-11-22 19:55 | Emergency (ER) | payer MEDICARE, OTHER ==
[2023-11-22 20:02] VITALS: TEMP 97.8
--- NOTE | 2023-11-22 20:16 | ED ---
Nausea/Vomiting/Diarrhea HPI - General Chief complaint: Nausea/Vomiting/Diarrhea Stated complaint: Dizziness Time Seen by Provider: 11/22/23 20:16 Source: EMS, RN notes reviewed Mode of arrival: EMS - History of Present Illness Initial comments: 63-year-old male presenting with dizziness x 2 days with associated nausea and vomiting. States Wednesday evening he was in the shower when he suddenly had an episode of dizziness, described as "room spinning". Patient states during this time the dizziness was so severe that he vomited. States yesterday the dizziness improved, however he woke up this morning and symptoms have returned. He was seen by his PCP today who told him it was vertigo and gave him meclizine, however he is not able to tolerate the medication due to nausea and vomiting. He does have a history of vertigo however states this is much worse than any previous episodes. He takes the blood pressure medication, however reports he did not take it today. Denies chest pain or shortness of breath. Denies any other cardiac or pulmonary history. Denies history of stroke. He is not on a blood thinner. - Related Data Home Medications Medication Instructions Recorded Confirmed Atorvastatin [Lipitor] 20 mg PO W/SUPPER 05/21/15 11/22/23 Cetirizine HCl [Zyrtec] 10 mg PO W/SUPPER 05/21/15 11/22/23 Esomeprazole Magnesium [NexIUM] 40 mg PO W/SUPPER 05/21/15 11/22/23 Sertraline HCl [Zoloft] 50 mg PO W/SUPPER 05/21/15 11/22/23 Irbesartan [Avapro] 150 mg PO W/SUPPER 11/22/23 11/22/23 Meclizine [Antivert] 25 mg PO Q8H PRN 11/22/23 11/22/23 Multivitamins, Thera [Multivitamin 1 tab PO W/SUPPER 11/22/23 11/22/23 (formulary)] Ondansetron Odt [Zofran Odt] 8 mg PO Q8H PRN 11/22/23 11/22/23 Superbeets 3 cap PO W/SUPPER 11/22/23 11/22/23 Allergies Allergy/AdvReac Type Severity Reaction Status Date / Time No Known Allergies Allergy Verified 11/22/23 20:30 Review of Systems ROS Statement: Those systems with pertinent positive or pertinent negative responses have been documented in the HPI. ROS Other: All systems not noted in ROS Statement are negative. Past Medical History Past Medical History: GERD/Reflux, Hyperlipidemia, Sleep Apnea/CPAP/BIPAP Additional Past Medical History / Comment(s): CPAP use. Tinnitus. History of Any Multi-Drug Resistant Organisms: None Reported Additional Past Surgical History / Comment(s): vasectomy,colonoscopy Past Anesthesia/Blood Transfusion Reactions: No Reported Reaction Past Psychological History: No Psychological Hx Reported Past Alcohol Use History: Rare Past Drug Use History: None Reported - Past Family History Mother Family Medical History: Cancer Additional Family Medical History / Comment(s): ovarian General Exam General appearance: alert, in no apparent distress Head exam: Present: atraumatic, normocephalic, normal inspection Eye exam: Present: normal appearance, PERRL, EOMI. Absent: scleral icterus, conjunctival injection, periorbital swelling ENT exam: Present: normal exam, mucous membranes moist, TM's normal bilaterally Neck exam: Present: normal inspection. Absent: tenderness, meningismus, lympha denopathy Respiratory exam: Present: normal lung sounds bilaterally. Absent: respiratory distress, wheezes, rales, rhonchi, stridor Cardiovascular Exam: Present: regular rate, normal rhythm, normal heart sounds. Absent: systolic murmur, diastolic murmur, rubs, gallop, clicks GI/Abdominal exam: Present: soft, normal bowel sounds. Absent: distended, tenderness, guarding, rebound, rigid Extremities exam: Present: normal inspection, full ROM, normal capillary refill. Absent: tenderness, pedal edema, joint swelling, calf tenderness Neurological exam: Present: alert, oriented X3, CN II-XII intact, normal gait, other (No nystagmus, negative nose to finger test) Psychiatric exam: Present: normal affect, normal mood Skin exam: Present: warm, dry, intact, normal color. Absent: rash Course Vital Signs 11/22/23 11/22/23 20:00 20:52 Temperature 97.8 F Pulse Rate 85 77 Respiratory 16 18 Rate Blood Pressure 200/110 159/98 O2 Sat by Pulse 96 96 Oximetry Medical Decision Making - Medical Decision Making Was pt. sent in by a medical professional or institution (, PA, REGISTERED SALES ASSISTANT, urgent care, hospital, or custodial...) When possible be specific @ -No Did you speak to anyone other than the patient for history (EMS, parent, family, police, friend...)? What history was obtained from this source @ -Patient's supplemented history Did you review nursing and triage notes (agree or disagree)? Why? @ -I reviewed and agree with nursing and triage notes Were old charts reviewed (outside hosp., previous admission, EMS record, old EKG, old radiological studies, urgent care reports/EKG's, custodial records)? Report findings @ -No old charts were reviewed Differential Diagnosis (chest pain, altered mental status, abdominal pain women, abdominal pain men, vaginal bleeding, weakness, fever, dyspnea, syncope, headache, dizziness, GI bleed, back pain, seizure, CVA, palpatations, mental health, musculoskeletal)? @ -Differential Dizziness: Benign paroxysmal positional Vertigo, Meniere's disease, otitis media, acoustic neuroma, vertebrobasilar insufficiency, cerebellar stroke, encephalitis, hypovolemic, arrhythmia, coronary artery syndrome, anemia, this is not meant to be an all-inclusive list EKG interpreted by me (3pts min.). @ -As above X-rays interpreted by me (1pt min.). @ -Chest x-ray reveals low lung volumes with generalized hazy appearance CT interpreted by me (1pt min.). @ -CT of head reveals no acute intracranial process U/S interpreted by me (1pt. min.). @ -None done What testing was considered but not performed or refused? (CT, X-rays, U/S, labs)? Why? @ -None What meds were considered but not given or refused? Why? @ -None Did you discuss the management of the patient with other professionals (professionals i.e. , PA, REGISTERED SALES ASSISTANT, lab, RT, psych nurse, bilingual social worker, clinical asst, teacher, chief legal officer, case work aide)? Give summary @ -No Was smoking cessation discussed for >3mins.? @ -No Was critical care preformed (if so, how long)? @ -No Were there social determinants of health that impacted care today? How? (Homelessness, low income, unemployed, alcoholism, drug addiction, transportation, low edu. Level, literacy, decrease access to med. care, alf, rehab)? @ -No Was there de-escalation of care discussed even if they declined (Discuss DNR or withdrawal of care, Hospice)? DNR status @ -No What co-morbidities impacted this encounter? (DM, HTN, Smoking, COPD, CAD, Cancer, CVA, ARF, Chemo, Hep., AIDS, mental health diagnosis, sleep apnea, morbid obesity)? @ -None Was patient admitted / discharged? Hospital course, mention meds given and route, prescriptions, significant lab abnormalities, going to OR and other pertinent info. @ -Patient was discharged. This is a 63-year-old male with history of vertigo presenting with dizziness x 2 days with associated nausea and vomiting. Denies chest pain or shortness of breath. Patient is initially hypertensive, has not taken BP meds today. Neuro examination is unremarkable. Patient was given Zofran in ambulance prior to arrival, patient was provided with IV fluids and meclizine. Laboratory studies including CBC, CMP, coags, troponin are unremarkable. EKG reveals normal sinus rhythm with no ST changes. CT head reveals no acute intracranial abnormality. Chest x-ray reveals low lung volumes with generalized hazy appearance, however patient does not have history of CHF and does not appear fluid overloaded. Upon reevaluation, patient states symptoms have improved. BP has improved to 159/98. Discussed diagnosis of vertigo, there are no signs of emergent etiology upon evaluation today. Offered Valium to further improve symptoms, however patient declines and states he feels stable for discharge at this time. Patient states he has Zofran and meclizine at home he will take. Return precautions discussed, advised to follow-up with PCP within the week. Patient is agreeable to plan. Case was discussed with my ED attending Dr. Gallagher. Patient discharged in stable condition. Undiagnosed new problem with uncertain prognosis? @ -No Drug Therapy requiring intensive monitoring for toxicity (Heparin, Nitro, Insulin, Cardizem)? @ -No Were any procedures done? @ -No Diagnosis/symptom? @ -Vertigo Acute, or Chronic, or Acute on Chronic? @ -Acute Uncomplicated (without systemic symptoms) or Complicated (systemic symptoms)? @ -Uncomplicated Side effects of treatment? @ -No Exacerbation, Progression, or Severe Exacerbation? @ -No Poses a threat to life or bodily function? How? (Chest pain, USA, MA, pneumonia, PE, COPD, DKA, ARF, appy, cholecystitis, CVA, Diverticulitis, Homicidal, Suicidal, threat to staff... and all critical care pts) @ -Not at this time - Lab Data Result diagrams: 11/22/23 20:04 11/22/23 20:04 Lab Results 11/22/23 11/22/23 11/22/23 Range/Units 20:04 20:04 20:04 WBC 11.6 H (3.8-10.6) k/uL RBC 5.41 (4.30-5.90) m/uL Hgb 17.6 H (13.0-17.5) gm/dL Hct 51.1 (39.0-53.0) % MCV 94.5 (80.0-100.0) fL MCH 32.6 (25.0-35.0) pg MCHC 34.5 (31.0-37.0) g/dL RDW 13.1 (11.5-15.5) % Plt Count 335 (150-450) k/uL MPV 8.0 Neutrophils % 70 % Lymphocytes % 21 % Monocytes % 6 % Eosinophils % 1 % Basophils % 1 % Neutrophils # 8.2 H (1.3-7.7) k/uL Lymphocytes # 2.4 (1.0-4.8) k/uL Monocytes # 0.7 (0-1.0) k/uL Eosinophils # 0.2 (0-0.7) k/uL Basophils # 0.1 (0-0.2) k/uL PT (10.0-12.5) sec INR (<1.2) APTT (22.0-30.0) sec Sodium 140 (137-145) mmol/L Potassium 4.3 (3.5-5.1) mmol/L Chloride 106 (98-107) mmol/L Carbon Dioxide 21 L (22-30) mmol/L Anion Gap 13 mmol/L BUN 14 (9-20) mg/dL Creatinine 0.91 (0.66-1.25) mg/dL Est GFR (CKD-EPI)AfAm >90 (>60 ml/min/1.73 sqM) Est GFR (CKD-EPI)NonAf 89 (>60 ml/min/1.73 sqM) Glucose 118 H (74-99) mg/dL Plasma Lactic Acid Matteo 2.5 H* (0.7-2.0) mmol/L Calcium 10.0 (8.4-10.2) mg/dL Total Bilirubin 1.0 (0.2-1.3) mg/dL AST 38 (17-59) U/L ALT 33 (4-49) U/L Alkaline Phosphatase 61 (38-126) U/L Troponin I (0.000-0.034) ng/mL Total Protein 8.1 (6.3-8.2) g/dL Albumin 5.0 (3.5-5.0) g/dL 11/22/23 11/22/23 Range/Units 20:04 20:04 WBC (3.8-10.6) k/uL RBC (4.30-5.90) m/uL Hgb (13.0-17.5) gm/dL Hct (39.0-53.0) % MCV (80.0-100.0) fL MCH (25.0-35.0) pg MCHC (31.0-37.0) g/dL RDW (11.5-15.5) % Plt Count (150-450) k/uL MPV Neutrophils % % Lymphocytes % % Monocytes % % Eosinophils % % Basophils % % Neutrophils # (1.3-7.7) k/uL Lymphocytes # (1.0-4.8) k/uL Monocytes # (0-1.0) k/uL Eosinophils # (0-0.7) k/uL Basophils # (0-0.2) k/uL PT 10.9 (10.0-12.5) sec INR 1.0 (<1.2) APTT 21.6 L (22.0-30.0) sec Sodium (137-145) mmol/L Potassium (3.5-5.1) mmol/L Chloride (98-107) mmol/L Carbon Dioxide (22-30) mmol/L Anion Gap mmol/L BUN (9-20) mg/dL Creatinine (0.66-1.25) mg/dL Est GFR (CKD-EPI)AfAm (>60 ml/min/1.73 sqM) Est GFR (CKD-EPI)NonAf (>60 ml/min/1.73 sqM) Glucose (74-99) mg/dL Plasma Lactic Acid Matteo (0.7-2.0) mmol/L Calcium (8.4-10.2) mg/dL Total Bilirubin (0.2-1.3) mg/dL AST (17-59) U/L ALT (4-49) U/L Alkaline Phosphatase (38-126) U/L Troponin I <0.012 (0.000-0.034) ng/mL Total Protein (6.3-8.2) g/dL Albumin (3.5-5.0) g/dL - EKG Data -: EKG Interpreted by Me EKG Comments: EKG reveals normal sinus rhythm with occasional PVCs. Ventricular rate 80 bpm, AL interval 186, QRS duration 108, QT/QTc 372/408 Disposition Clinical Impression: Vertigo Disposition: HOME SELF-CARE Condition: Stable Instructions (If sedation given, give patient instructions): Vertigo (ED) Additional Instructions: Follow-up with PCP as discussed. Please return to the Emergency Department if symptoms worsen or any other concerns. Is patient prescribed a controlled substance at d/c from ED?: No Referrals: None,Stated [Primary Care Provider] - 1-2 days Time of Disposition: 22:04
[2023-11-22 20:48] LABS: Basophils # (A) 0.1 k/uL (0-0.2); Basophils % (A) 1 %; Eosinophils # (A) 0.2 k/uL (0-0.7); Eosinophils % (A) 1 %; HCT 51.1 % (39.0-53.0); HGB 17.6 gm/dL (13.0-17.5); Lymphocytes # (A) 2.4 k/uL (1.0-4.8); Lymphocytes % (A) 21 %; MCH 32.6 pg (25.0-35.0); MCHC 34.5 g/dL (31.0-37.0); MCV 94.5 fL (80.0-100.0); Monocytes # (A) 0.7 k/uL (0-1.0); Monocytes % (A) 6 %; Neutrophils # (A) 8.2 k/uL (1.3-7.7); Neutrophils % (A) 70 %; Platelet Count 335 k/uL (150-450); RBC 5.41 m/uL (4.30-5.90); RDW 13.1 % (11.5-15.5); WBC 11.6 k/uL (3.8-10.6)
[2023-11-22] MEDS: SODIUM CHLORIDE 0.9% 1,000 ML IV STA (20:50)
[2023-11-22] MEDS: MECLIZINE 12.5 MG TAB PO STA (20:50)
--- NOTE | 2023-11-22 20:50 | XR ---
EXAMINATION TYPE: XR chest 2V DATE OF EXAM: 11/22/2023 8:39 PM CLINICAL INDICATION: Male, 63 years old with history of dizziness; [facility] COMPARISON: Chest radiographs from 03/04/2017 TECHNIQUE: XR chest 2V Frontal view of the chest. FINDINGS: Lungs/Pleura: There is no evidence of pleural effusion, focal consolidation, or pneumothorax. Pulmonary vascularity: Unremarkable. Heart/mediastinum: Cardiomediastinal silhouette is unremarkable. Musculoskeletal: No acute osseous pathology. IMPRESSION: Low lung volumes with a generalized hazy appearance which could represent atelectasis versus pulmonar y edema correlate with serum BNP.
[2023-11-22 20:53] VITALS: RESP 18
[2023-11-22 20:53] LABS: ALT 33 U/L (4-49); AST 38 U/L (17-59); African American GFR (CKD) >90 (>60 ml/min/1.73 sqM); Alkaline Phosphatase 61 U/L (38-126); Anion Gap 13 mmol/L; Blood Urea Nitrogen 14 mg/dL (9-20); Carbon Dioxide 21 mmol/L (22-30); Chloride 106 mmol/L (98-107); Glucose 118 mg/dL (74-99); Non-African American GFR(CKD) 89 (>60 ml/min/1.73 sqM); Potassium 4.3 mmol/L (3.5-5.1); Sodium 140 mmol/L (137-145); Total Protein 8.1 g/dL (6.3-8.2)
[2023-11-22 21:02] LABS: Prothrombin Time 10.9 sec (10.0-12.5)
--- NOTE | 2023-11-22 21:23 | CT ---
EXAMINATION TYPE: CT brain wo con CT DLP: 1330.4 mGycm, Automated exposure control for dose reduction was used. DATE OF EXAM: 11/22/2023 8:47 PM COMPARISON: None. CLINICAL INDICATION: Male, 63 years old with history of dizziness, dizziness TECHNIQUE: Brain: Axial CT images of the brain were obtained with coronal and sagittal reformats created and rev iewed. Contrast used: None. Oral contrast used: None. FINDINGS: Brain: Extra-axial spaces: No abnormal extra-axial fluid collections. Ventricular system: Within normal limits Cerebral parenchyma: No acute intraparenchymal hemorrhage or mass effect. The quintana-white junction is well differentiated. Cerebellum: Unremarkable. Mass effect: No evidence of midline shift. Intracranial vasculature: unremarkable Soft tissues: Normal. Calvarium/osseous structures: No depressed skull fracture. Paranasal sinuses and mastoid air cells: Mild scattered paranasal sinus disease. Visualized orbits: Orbital contents are intact. IMPRESSION: No acute intracranial process.
[2023-11-22 21:26] LABS: Partial Thromboplastin Time 21.6 sec (22.0-30.0)
[2023-11-22 22:16] VITALS: BP 157/94; PULSE 80
[2023-11-22] MEDS: LORazepam 2 MG/ML INJ IV STA ×2 (22:42→22:47)
== END 2023-11-22 22:59 | disposition home or self-care (01) ==
LOC: EC 19:55
DX: R42 Dizziness and giddiness (principal)
CPT/HCPCS: 36415; 93005; 80053; 83605; 84484; 85025; 85610; 85730; 71046; 70450; 99285; 96374; 96361 ×2; J2060